=== PATIENT | female | born 1995 | race Two or more races ===

== ENCOUNTER 2017-05-31 11:09 | Emergency (ER) | payer BC ==
[~2017-05-31] VITALS: Ht 154.9 cm; Wt 55.8 kg
[2017-05-31 11:15] VITALS: BP 122/77
== END 2017-05-31 11:59 | disposition home or self-care (01) ==
LOC: ER 11:13
DX: S16.1XXA Strain of muscle, fascia and tendon at neck level, initial encounter (principal); R51 Headache; Z88.0 Allergy status to penicillin; Z91.02 Food additives allergy status; V43.52XA Car driver injured in collision with other type car in traffic accident, initial encounter; Y93.89 Activity, other specified; Y92.488 Other paved roadways as the place of occurrence of the external cause; Y99.8 Other external cause status
CPT/HCPCS: 99281; A4606; Z7610; Z7502